=== PATIENT | male | born 1960 | race Caucasian/White ===

== ENCOUNTER 2016-09-11 11:51 | Emergency (ER) | payer OTHER ==
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
[2016-09-11 13:39] VITALS: BP 123/84
== END 2016-09-11 13:39 | disposition home or self-care (01) ==
LOC: ER 11:51
DX: S20.219A Contusion of unspecified front wall of thorax, initial encounter (principal); M25.511 Pain in right shoulder; R07.81 Pleurodynia; J44.9 Chronic obstructive pulmonary disease, unspecified; I10 Essential (primary) hypertension; F17.210 Nicotine dependence, cigarettes, uncomplicated; X58.XXXA Exposure to other specified factors, initial encounter
CPT/HCPCS: 99283

== ENCOUNTER 2018-05-17 04:07 | Emergency (ER) | payer OTHER ==
--- NOTE | 2018-05-17 04:19 | ER Document Report ---
ED General - General Chief Complaint: Chest Pain Stated Complaint: CHEST PAIN, ARM PAIN, DIZZY Time Seen by Provider: 05/17/18 04:18 Notes: Patient is a pleasant 57-year-old male who presents to the ER with SVT. He says he felt his heart rate racing and therefore came to the ER. He denies any chest pain. He says he feels slightly short of breath because his heart is racing. Denies any recent fevers or infections. He does drink alcohol on a daily basis. Drinks 4-5 beers a day. He does smoke. He denies any drug use. No cocaine use. Patient says he has had similar symptoms in the past. He says is difficult to tell how long he has been having these intermittently. He says when they do occur they always stop spontaneously he is never had to come to the ER before until now. TRAVEL OUTSIDE OF THE [place] IN LAST 30 DAYS: No - Related Data Allergies/Adverse Reactions: No Known Allergies Allergy (Verified 09/11/16 11:57) Past Medical History - Social History Smoking Status: Current Every Day Smoker Frequency of alcohol use: Heavy Drug Abuse: None Family History: CVA, Hyperlipidemia - Past Medical History Cardiac Medical History: Reports: Hx Hypertension Pulmonary Medical History: Reports: Hx COPD Denies: Hx Tuberculosis Renal/ Medical History: Denies: Hx Peritoneal Dialysis Musculoskeletal Medical History: Reports Hx Arthritis, Reports Hx Musculoskeletal Trauma Psychiatric Medical History: Denies: Hx Depression Traumatic Medical History: Reports: Hx Fractures Past Surgical History: Reports: Hx Orthopedic Surgery - right wrist - Immunizations Immunizations up to date: No Hx Diphtheria, Pertussis, Tetanus Vaccination: No Hx Pneumococcal Vaccination: 08/10/13 Review of Systems - Review of Systems Notes: My Normal Review Basic REVIEW OF SYSTEMS: CONSTITUTIONAL : Denies fever, chills, or sweats. Denies recent illness. EENT: Denies eye, ear, throat, or mouth pain or symptoms. Denies nasal or sinus congestion. CARDIOVASCULAR: Heart racing. RESPIRATORY: Denies cough, cold, or chest congestion. Denies shortness of breath, difficulty breathing, or wheezing. GASTROINTESTINAL: Denies abdominal pain. Denies nausea, vomiting, or diarrhea. NEUROLOGICAL: Denies altered mental status or loss of consciousness. Denies headache. Denies weakness or paralysis or loss of use of either side. Denies problems with gait or speech. Denies sensory or motor loss. ALL OTHER SYSTEMS REVIEWED AND NEGATIVE. Physical Exam - Vital signs Vitals: Pulse Resp BP Pulse Ox 190 H 17 101/90 H 96 05/17/18 04:08 05/17/18 04:08 05/17/18 04:08 05/17/18 04:08 - Notes Notes: General Appearance: Well nourished, alert, cooperative, no acute distress, no obvious discomfort. Vitals: reviewed, See vital signs table. Head: no swelling or tenderness to the head Eyes: PERRL, EOMI, Conjuctiva clear Mouth: No decreasd moisture Neck: Supple, no neck tenderness, No thyromegaly Lungs: No wheezing, No rales, No rhonci, No accessory muscle use, good air exchange bilaterally. Heart: Rapid rate, Regular rythm, No murmur, no rub Abdomen: Normal BS, soft, No rigidity, No abdominal tenderness, No guarding, no rebound, no abdominal masses, no organomegaly Extremities: strength 5/5 in all extremities, good pulses in all extremities, no swelling or tenderness in the extremities, no edema. Skin: warm, dry, appropriate color, no rash Neuro: speech clear, oriented x 3, normal affect, responds appropriately to questions. Course - Re-evaluation Re-evalutation: 05/17/18 04:27 I performed a modified Valsalva maneuver on the patient. He is now out of SVT. He looks and feels improved. We will repeat EKG and obtain blood work. 05/17/18 05:17 Patient's blood pressure is a little bit low. We will give him some IV fluids. Patient says he has no symptoms at this time and feels very well. We will continue to monitor the patient. 05/17/18 06:06 She is now started having some pain into his back. This is new. He did not continues to deny any chest pain. Blood pressure is improving. I will obtain a CTA to rule out any aortic pathology due to the sudden onset SVT and patient not having pain into his back. 05/17/18 07:24 CT is negative. Shortly after receiving a CTA patient did develop some nausea and vomiting. After the Zofran the nausea vomiting is better. Is currently symptomatically looks well. I watch him a little bit longer just to make sure he continues to do well. I suspect the vomiting probably is related to the contrast relief from the CT scan. We will monitor and feel a bit longer and make sure he continues to do well. 05/17/18 08:21 Patient is feeling well. He looks well. He has had no further vomiting. He says he just has a little bit of indigestion which she routinely gets. He says the symptoms he is having right now are in epigastric region and feels just like typical indigestion that he has had in the past. Patient's troponin is negative. He has no chest pain. Is not short of breath. His CT of the chest abdomen pelvis is negative. I feel he safe to be discharged home. On follow- up with ticket agent for further evaluation due to the SVT. Sounds as if he has had SVT before but it has ended spontaneously in the past. Patient does smoke and drink alcohol on a regular basis. He says he drinks approximately 4- 5 beers a day. I informed him that he needs to quit drinking large amounts of alcohol also he needs to cut back on smoking as nicotine is a stimulant and could potentially lead to him having recurrence of these episodes. I informed him if he has any chest pain, shortness of breath, recurrent vomiting, or rapid heartbeat he must return to ER immediately. Patient agrees with plan will be discharged home. Dictation of this chart was performed using voice recognition software; therefore, there may be some unintended grammatical errors. - Vital Signs Vital signs: Temp Pulse Resp BP Pulse Ox 190 H 18 110/85 97 05/17/18 04:08 05/17/18 09:01 05/17/18 09:00 05/17/18 09:01 - Laboratory Result Diagrams: 05/17/18 04:39 05/17/18 04:39 Laboratory results interpreted by me: 05/17/18 04:39 Creatinine 1.54 H Est GFR ( Amer) 57 L Est GFR (Non-Af Amer) 47 L Magnesium 2.4 H - EKG Interpretation by Me Additional EKG results interpreted by me: 05/17/18 04:19 EKG is reviewed and interpreted by me. EKG shows SVT with a rate of [address] segment elevation or depression. No ischemic T wave inversions. Patient does have a right bundle branch block. QRS duration is slightly prolonged at 110 ms. QTc interval is elevated 491 ms. Right bundle branch block is old in comparison to old EKG from April 01, 2016. 05/17/18 04:20 05/17/18 04:37 EKG #2 is reviewed and interpreted by me. EKG #2 is post conversion of SVT with vagal maneuver. EKG shows sinus tachycardia with a rate of [address] segment elevation or depression. No concerning T wave inversions. Patient does have a right bundle branch block which is unchanged comparison to previous EKG. AL interval and QTc intervals are within normal range. QRS duration is slightly prolonged. 05/17/18 04:39 Discharge - Discharge Clinical Impression: SVT (supraventricular tachycardia) Condition: Good Disposition: HOME, SELF-CARE Additional Instructions: You came in with the heart arrhythmia called SVT. This is an arrhythmia where your heart starts beating very fast. This can make you feel unwell when you are having an episode. Fortunately we were able to stop the arrhythmia by doing something called a vagal maneuver which is where you blow hard against a fixed object, such as a syringe, which causes you to increase pressure in your chest and then causes your heart arrhythmia to stop. Sometimes if the vagal maneuvers are not working we will have to give the medication to stop your heart from racing. Please have a low threshold to return to the ER if your heart starts racing again as sometimes we will have to give this medication because it is not safe for your heart to run at a fast rate for a prolonged period time. Please try to stop smoking and cut back on your alcohol intake. please follow up with the ticket agent, Dr. Platt, for reevaluation and further workup for your arrythmia called SVT. Please return to the ER immediately if you have recurrence of a fast heart beat, recurrent vomiting, and chest pain, difficulty breathing, or if you feel unwell in any way. Referrals: CHANEL PLATT MD [ACTIVE STAFF] - Follow up in 3-5 days
[2018-05-17 04:44] LABS: ABSOLUTE BASOPHILS # (AUTO) 0.1 10^3/uL (0.0-0.2); ABSOLUTE EOSINOPHILS # (AUTO) 0.3 10^3/uL (0.0-0.6); ABSOLUTE LYMPHOCYTES (AUTO) 2.5 10^3/uL (0.5-4.7); ABSOLUTE MONOCYTES (AUTO) 0.9 10^3/uL (0.1-1.4); ABSOLUTE NEUT (AUTO) 6.4 10^3/uL (1.7-8.2); BASOPHILS % (AUTO) 1.4 % (0-2); EOSINOPHILS % (AUTO) 2.5 % (0-6); HEMATOCRIT 48.2 % (37.9-51.0); HEMOGLOBIN 16.4 g/dL (13.5-17.0); LYMPHOCYTES % (AUTO) 24.3 % (13-45); MEAN CORPUSCULAR HEMOGLOBIN 32.8 pg (27.0-33.4); MEAN CORPUSCULAR VOLUME 96 fl (80-97); MONOCYTES % (AUTO) 8.7 % (3-13); PLATELET COUNT 293 10^3/uL (150-450); RED CELL DISTRIBUTION WIDTH 13.5 % (11.5-14.0); SEGMENTED NEUTROPHILS % (AUTO) 63.1 % (42-78); TOTAL CELLS COUNTED % (AUTO) 100 %; WHITE BLOOD COUNT 10.1 10^3/uL (4.0-10.5)
[2018-05-17 04:59] LABS: ANION GAP 15 (5-19); BLOOD UREA NITROGEN 11 mg/dL (7-20); CALCIUM 9.2 mg/dL (8.4-10.2); CARBON DIOXIDE 23 mmol/L (22-30); CHLORIDE 100 mmol/L (98-107); GLUCOSE 103 mg/dL (75-110); POTASSIUM 4.3 mmol/L (3.6-5.0); SODIUM 138.2 mmol/L (137-145)
[2018-05-17] MEDS ORDERED: NORMAL SALINE 1000 ML 1,000 ML IV ONE (05:08)
[2018-05-17] MEDS ORDERED: ONDANSETRON HCL INJ/PF 4 MG/2 ML SDV IV ONE (07:17)
[2018-05-17] MEDS ORDERED: ONDANSETRON HCL INJ/PF 4 MG/2 ML SDV ONE (07:17)
--- NOTE | 2018-05-17 07:20 | RADIOLOGY REPORT (SQ) ---
CLINICAL DATA: See reason for exam. TECHNICAL DATA: High-resolution axial CT imaging of the chest, abdomen and pelvis following intravenous contrast administration. CT imaging of the abdomen and pelvis was also performed prior to the administration of intravenous contrast. Sagittal and axial reconstructed images were performed as well as oblique MIP images of the chest and abdomen. The CT study is performed according to ALARA (as low as reasonably achievable) or ALARA/IMAGE GENTLY, with automatic adjustment of mA and/or kV according to patient size. FINDINGS: CHEST: Lungs: The lungs are well expanded. There is mild diffuse centrilobular emphysema greatest in the upper lobes. There are no pleural effusions. There is no dense airspace consolidation. No pneumothorax is identified. There are minimal paraseptal emphysematous changes in the lung apices as well. Heart: The heart is normal in size. There is no pericardial effusion. Mediastinum:The mediastinum is unremarkable. The mediastinal vessels are normal in caliber and contour. There is no evidence of aortic aneurysm or dissection. There is homogeneous enhancement of the pulmonary arteries. No intra-arterial filling defects are identified to suggest acute or chronic pulmonary embolism. Bones:No acute osseous abnormalities are identified. Soft tissues:No focal soft tissue abnormalities are identified. Lymphadenopathy: No pathologic hilar, mediastinal or axillary lymphadenopathy is identified. ABDOMEN/PELVIS: The unenhanced images reveal mild atherosclerotic calcifications along the abdominal aorta and iliac arteries. Occasional prostatic calcifications are noted. There is no evidence of nephrolithiasis or cholelithiasis. Liver:The liver is normal in size and configuration. No focal hepatic abnormalities are identified. Liver attenuation is within normal limits. Spleen:The spleen is normal is size, configuration and attenuation. Gallbladder and bile duct: The gallbladder is well distended and unremarkable. There is no biliary ductal dilatation. Pancreas: The pancreas is grossly normal in size and configuration. Adrenal Glands:The adrenal glands are normal in size and configuration. Kidneys:The kidneys are normal in size and configuration. There is no evidence of hydronephrosis. There is no evidence of nephrolithiasis. No definite solid or cystic renal mass lesions are identified. There is mild stranding of the perinephric fat which is nonspecific but can be seen with chronic medical renal disease. Stomach:The stomach is grossly normal. There is no definite hiatal hernia. Bowel:The bowel gas pattern is non specific and non obstructive. Appendix: The appendix is normal. Free air:There is no evidence of free air. Free fluid: There is no evidence of free fluid. Vasculature: The aorta is normal in caliber and contour. The inferior vena cava is grossly unremarkable. There is no evidence of aortic aneurysm or aortic dissection. The celiac, superior and inferior mesenteric arteries are patent and are grossly unremarkable. There are single renal arteries bilaterally which are patent without significant stenosis or occlusion. Lymphadenopathy: No pathologic lymphadenopathy is identified. Bladder: The bladder is incompletely distended and smooth in contour. Reproductive: The prostate gland is grossly within normal limits. Bones: No acute osseous abnormalities are identified. Soft tissues: There are bilateral fat-containing inguinal hernias. IMPRESSION: 1. No CT evidence to suggest acute or chronic pulmonary embolism, aortic aneurysm or aortic dissection. 2. Mild centrilobular and paraseptal emphysematous changes of the lungs with greatest involvement of the upper lobes. 3. No evidence of acute intra-abdominal or intrapelvic pathology. No vascular abnormalities are identified involving the abdominal aorta or branch vessels. 4. Bilateral fat-containing inguinal hernias.
[2018-05-17] MEDS ORDERED: MAG HYDROX/AL HYDROX/SIMETH SUSP 30 ML UDCUP PO ONE (08:07)
[2018-05-17 09:34] VITALS: BP 110/85
--- NOTE | 2018-05-17 12:40 | EKG REPORT ---
SEVERITY:- ABNORMAL ECG - SINUS TACHYCARDIA INCOMPLETE RIGHT BUNDLE BRANCH BLOCK : Confirmed by: Paris Mclean MD 17-May-2018 12:40:17
--- NOTE | 2018-05-17 12:41 | EKG REPORT ---
SEVERITY:- ABNORMAL ECG - SUPRAVENTRICULAR TACHYCARDIA INCOMPLETE RIGHT BUNDLE BRANCH BLOCK : Confirmed by: Paris Mclean MD 17-May-2018 12:40:29
== END 2018-05-17 09:15 | disposition home or self-care (01) ==
LOC: ER 04:07
DX: I47.1 Supraventricular tachycardia (principal); R07.9 Chest pain, unspecified; R06.02 Shortness of breath; F10.10 Alcohol abuse, uncomplicated; F17.200 Nicotine dependence, unspecified, uncomplicated; I10 Essential (primary) hypertension; J44.9 Chronic obstructive pulmonary disease, unspecified
CPT/HCPCS: 93005; 99285; 96361; 96374; 36415; 83735; 85025; 80048; 84484; 71275; 74174; 93010; J2405; J7030

== ENCOUNTER 2018-10-15 04:21 | Emergency (ER) | payer OTHER ==
[2018-10-15 04:53] LABS: ABSOLUTE LYMPHOCYTES (AUTO) 0.6 10^3/uL (0.5-4.7); ABSOLUTE MONOCYTES (AUTO) 0.8 10^3/uL (0.1-1.4); ABSOLUTE NEUT (AUTO) 6.3 10^3/uL (1.7-8.2); BASOPHILS % (AUTO) 0.4 % (0-2); EOSINOPHILS % (AUTO) 0.1 % (0-6); HEMATOCRIT 49.3 % (37.9-51.0); HEMOGLOBIN 16.8 g/dL (13.5-17.0); LYMPHOCYTES % (AUTO) 7.5 % (13-45); MEAN CORPUSCULAR HEMOGLOBIN 32.7 pg (27.0-33.4); MEAN CORPUSCULAR HGB CONC 34.1 g/dL (32.0-36.0); MEAN CORPUSCULAR VOLUME 96 fl (80-97); MONOCYTES % (AUTO) 10.6 % (3-13); PLATELET COUNT 157 10^3/uL (150-450); RED BLOOD COUNT 5.15 10^6/uL (4.35-5.55); RED CELL DISTRIBUTION WIDTH 13.6 % (11.5-14.0); SEGMENTED NEUTROPHILS % (AUTO) 81.4 % (42-78); TOTAL CELLS COUNTED % (AUTO) 100 %; WHITE BLOOD COUNT 7.7 10^3/uL (4.0-10.5)
[2018-10-15 05:11] LABS: ALANINE AMINOTRANSFERASE 37 U/L (21-72); ALKALINE PHOSPHATASE 102 U/L (38-126); ANION GAP 12 (5-19); ASPARTATE AMINO TRANSFERASE 30 U/L (17-59); BILIRUBIN,DIRECT 0.3 mg/dL (0.0-0.4); BILIRUBIN,TOTAL 0.5 mg/dL (0.2-1.3); BLOOD UREA NITROGEN 18 mg/dL (7-20); CARBON DIOXIDE 23 mmol/L (22-30); CHLORIDE 98 mmol/L (98-107); CREATINE KINASE 87 U/L (55-170); GLUCOSE 89 mg/dL (75-110); POTASSIUM 4.4 mmol/L (3.6-5.0); SODIUM 132.7 mmol/L (137-145); TOTAL PROTEIN 7.2 g/dL (6.3-8.2)
[2018-10-15 05:22] LABS: CREATINE KINASE MB 1.68 ng/mL (<4.55)
[2018-10-15 05:26] LABS: TROPONIN I < 0.012 ng/mL
[2018-10-15] MEDS ORDERED: METHYLPREDNISOLONE INJ 125 MG/2 ML SDV IV ONE (05:29)
[2018-10-15] MEDS ORDERED: IPRATROPIUM/ALBUTEROL 0.5-2.5 MG/3 ML AMPUL NEB ONE (05:29)
--- NOTE | 2018-10-15 05:36 | RADIOLOGY REPORT (SQ) ---
EXAM DESCRIPTION: XR CHEST 1 VIEW COMPLETED DATE/TME: 10/15/2018 04:34 CLINICAL HISTORY: 58 years, Male, SOB COMPARISON: 09/11/2016 chest NUMBER OF VIEWS: 2 TECHNIQUE: AP chest LIMITATIONS: None. FINDINGS: Heart size is normal. Underlying hyperinflation/COPD. Lungs are clear. Osteopenia. No pneumothorax IMPRESSION: COPD. Lungs are clear copyright 2010 [employer]- All Rights Reserved
[2018-10-15] MEDS: MAGNESIUM SULFATE/D5W 1 GM/100 ML RTUPB IV SCH ×2 (05:43→06:49)
--- NOTE | 2018-10-15 06:14 | ER Document Report ---
ED General - General Chief Complaint: Breathing Difficulty Stated Complaint: DIFFICULTY BREATHING Time Seen by Provider: 10/15/18 04:47 Notes: Patient is a 58-year-old male with chronic medical problems including COPD, hypertension, daily alcohol use, tobacco smoker, presents with 2-3 days of increasing shortness of breath, cough with associated sputum production. States his symptoms are moderate in nature, constant since onset and started gradually. Has been using his home nebulizers with moderate improvement. Nothing seems to worsen his symptoms. States this feels very similar to when he has had COPD exacerbations in the past. Has not had fever or constitutional symptoms. Has not seen his primary care doctor regarding today's concerns. TRAVEL OUTSIDE OF THE [place] IN LAST 30 DAYS: No - Related Data Allergies/Adverse Reactions: No Known Allergies Allergy (Verified 09/11/16 11:57) Past Medical History - General Information source: Patient - Social History Smoking Status: Current Every Day Smoker Frequency of alcohol use: every day Drug Abuse: None Lives with: Family Family History: CVA, Hyperlipidemia Patient has suicidal ideation: No Patient has homicidal ideation: No - Past Medical History Cardiac Medical History: Reports: Hx Hypertension Pulmonary Medical History: Reports: Hx COPD Denies: Hx Tuberculosis Renal/ Medical History: Denies: Hx Peritoneal Dialysis Musculoskeletal Medical History: Reports Hx Arthritis, Reports Hx Musculoskeletal Trauma Psychiatric Medical History: Denies: Hx Depression Traumatic Medical History: Reports: Hx Fractures Past Surgical History: Reports: Hx Orthopedic Surgery - right wrist - Immunizations Immunizations up to date: No Hx Diphtheria, Pertussis, Tetanus Vaccination: No Hx Pneumococcal Vaccination: 08/10/13 Review of Systems - Review of Systems Notes: Constitutional: Negative for fever. HENT: Negative for sore throat. Eyes: Negative for visual changes. Cardiovascular: Negative for chest pain. Respiratory: Positive for shortness of breath and cough. Gastrointestinal: Negative for abdominal pain, vomiting or diarrhea. Genitourinary: Negative for dysuria. Musculoskeletal: Negative for back pain. Skin: Negative for rash. Neurological: Negative for headaches, weakness or numbness. 10 point ROS negative except as marked above and in HPI. Physical Exam - Vital signs Vitals: Pulse Ox 96 10/15/18 04:26 Interpretation: Normal Notes: PHYSICAL EXAMINATION: GENERAL: Well-appearing, well-nourished and in no acute distress. HEAD: Atraumatic, normocephalic. EYES: Pupils equal round and reactive to light, extraocular movements intact, sclera anicteric, conjunctiva are normal. ENT: nares patent, oropharynx clear without exudates. Mildly dry mucous membra dion. NECK: Normal range of motion, supple without lymphadenopathy LUNGS: Breath sounds clear to auscultation bilaterally and equal. Expiratory wheezing in all lung carranza HEART: Regular rate and rhythm without murmurs ABDOMEN: Soft, nontender, normoactive bowel sounds. No guarding, no rebound. No masses appreciated. EXTREMITIES: Normal range of motion, no pitting or edema. No cyanosis. NEUROLOGICAL: No focal neurological deficits. Moves all extremities spontaneously and on command. PSYCH: Normal mood, normal affect. SKIN: Warm, Dry, normal turgor, no rashes or lesions noted. Course - Re-evaluation Re-evalutation: 10/15/18 06:14 Patient presents with a mild exacerbation of their baseline COPD. Mild wheezing at time of presentation but vitals do not show significant hypoxemia or tachypnea. No retractions. Patient did clinically improve after receiving nebulizers here in the emergency department. Chest x-ray without evidence of an acute pneumonia. Laboratories do not show acute kidney injury or significant leukocytosis. Patient able to ambulate without any respiratory distress. Based on patient's overall reassuring assessment, I believe they are stable for outpatient management with steroids. Patient has nebulizers at home. I do not suspect an acute alternative pathology at this time based on history and exam including acute pulmonary embolus, ACS, pneumothorax, or aortic dissection. At this time will discharge with return precautions and follow-up recommendations. Verbal discharge instructions given a the bedside and opportunity for questions given. Medication warnings reviewed. Patient is in agreement with this plan and has verbalized understanding of return precautions and the need for primary care follow-up in the next 24-72 hours. - Vital Signs Vital signs: Temp Pulse Resp BP Pulse Ox 99.3 F 11 L 113/80 97 10/15/18 04:34 10/15/18 05:01 10/15/18 05:00 10/15/18 05:01 - Laboratory Result Diagrams: 10/15/18 04:41 10/15/18 04:41 Laboratory results interpreted by me: 10/15/18 10/15/18 04:41 04:41 Seg Neutrophils % 81.4 H Lymphocytes % 7.5 L Sodium 132.7 L - Diagnostic Test Radiology reviewed: Image reviewed, Reports reviewed Radiology results interpreted by me: 10/15/18 06:16 Chest x-ray: No acute infiltrate or pneumothorax Discharge - Discharge Clinical Impression: COPD exacerbation, Shortness of breath Condition: Good Disposition: HOME, SELF-CARE Additional Instructions: You were seen for a COPD exacerbation. Your symptoms improved with treatment here in the emergency department. However, it is very important that you return to the emergency department immediately if you began to have worsening difficulty breathing that does not respond to your normal home nebulizers. You are also being sent home on a five-day course of steroids that you should start taking tomorrow. Please also follow closely with your primary care physician. You should eturn to emergency department if you develop fever greater than 101, persistent cough, persistent vomiting, pass out, or any other symptoms that are concerning to you. Prescriptions: Prednisone [Deltasone 20 mg Tablet] 2 tab PO DAILY 5 Days tablet
[2018-10-15 07:19] VITALS: BP 113/68
--- NOTE | 2018-10-15 07:58 | EKG REPORT ---
SEVERITY:- ABNORMAL ECG - SINUS RHYTHM INCOMPLETE RIGHT BUNDLE BRANCH BLOCK : Confirmed by: Brennan Perez MD 15-Oct-2018 07:57:36
== END 2018-10-15 07:37 | disposition home or self-care (01) ==
LOC: ER 04:21
DX: J44.1 Chronic obstructive pulmonary disease with (acute) exacerbation (principal); R06.02 Shortness of breath; R05 Cough; I10 Essential (primary) hypertension; F10.10 Alcohol abuse, uncomplicated; F17.200 Nicotine dependence, unspecified, uncomplicated
CPT/HCPCS: 93005; 94640; 99285; 96375; 96365; 96366; 36415; 82553; 82550; 85025; 80053; 84484; 71045; 93010; J2930; J3475; J7620

== ENCOUNTER 2019-06-02 09:40 | Day surgery (SDC) | payer OTHER ==
[~2019-06-02 09:40] MED LIST: PROPOFOL INJ 200 MG/20 ML VIAL IV ONE
[2019-06-02 11:42] VITALS: BP 104/75
--- NOTE | 2019-06-02 12:29 | Operative Report ---
Operative Report DATE OF SURGERY: 06/02/19 Operative Report: The risks, benefits and alternatives of the procedure including the risk of bleeding, perforation requiring surgery have been explained to the patient in detail and informed consent has been obtained. The patient is taken back to the endoscopy suite and placed in the left, lateral decubital position. Timeout was called. Propofol medication is administered. Rectal examination is done which did not reveal any masses, tears or fissures. An Olympus videoscope was introduced into the patient's rectum. Scope was then carefully advanced all the way to the cecum. The cecum was identified by the usual anatomical landmarks including the ileocecal valve as well as the appendiceal office. Photodocumentation is obtained. Scope was then sequentially pulled back via the various segments of the colon including the ascending colon, hepatic flexure, transverse colon, splenic flexure, descending colon and finally into the rectosigmoid portions of the colon. Retroflexion maneuvers performed PREOPERATIVE DIAGNOSIS: Colorectal cancer screening POSTOPERATIVE DIAGNOSIS: Also noted at the ileocecal valve status post biopsy photodocumentation obtained. Internal hemorrhoids OPERATION: Colonoscopy with biopsy SURGEON: PAM SOUSA ANESTHESIA: LMAC TISSUE REMOVED OR ALTERED: As noted above. COMPLICATIONS: None. ESTIMATED BLOOD LOSS: None. INTRAOPERATIVE FINDINGS: As noted above. PROCEDURE: Patient tolerated the procedure well. No immediate postprocedure complications are noted. Patient is discharged in good condition. Discharge date 06/02/2019. Discharge diet: Regular. Discharge activity: Regular. 2 to 3-week follow-up to discuss findings. Patient is instructed to call the office or proceed to the emergency room should there be any further questions. Wait on the pathology. We will schedule surveillance colonoscopy in a year. To follow-up healing of ulcer
== END 2019-06-02 12:15 | disposition home or self-care (01) ==
LOC: END 09:40
PROVIDERS: ATTEND Internal Medicine Gastroenterology
DX: Z12.11 Encounter for screening for malignant neoplasm of colon (principal); K64.8 Other hemorrhoids; K63.89 Other specified diseases of intestine; F17.210 Nicotine dependence, cigarettes, uncomplicated; Z79.51 Long term (current) use of inhaled steroids; Z79.899 Other long term (current) drug therapy
CPT/HCPCS: 45380; 88305 ×2; 00812; J2704; 812